=== PATIENT | female | born 1995 | race Caucasian/White ===

== ENCOUNTER 2016-08-16 23:10 | Emergency (ER) | payer SELFPAY ==
[2016-08-16] MEDS ORDERED: Sodium Chloride 0.9% 1000 ML 1,000 ML IV SCH (23:15)
[2016-08-16] MEDS ORDERED: Nitrostat 0.4 MG (ED) SL ONE ×2 (23:15→23:33)
[2016-08-16] MEDS ORDERED: BABY ASPIRIN 81 MG CHEW PO ONE (23:15)
[2016-08-16] MEDS ORDERED: BABY ASPIRIN 81 MG CHEW ONE (23:33)
[2016-08-16] MEDS ORDERED: Sodium Chloride 0.9% 1000 ML 1,000 ML ONE (23:33)
[2016-08-16 23:35] LABS: BASOPHIL % 0.3 % (0.0-0.4); Eosinophil % 3.3 % (0.00-5.0); Granulocytes % 43.9 % (36.0-66.0); Lymphocytes % 43.7 % (24.0-44.0); Mean Cell Volume 90.8 fl (78-100); Mean Corpuscular Hemoglobin 30.3 pg (26-32); Mean Platelet Volume 12.1 fl (6-9.5); Monocytes % 8.8 % (0.0-12.0); Platelet Count 258 K/mm3 (150-450); Red Blood Count 4.35 M/mm3 (4.1-5.4); Red Cell Distribution Width 14.4 % (11.5-14.0); White Blood Count 7.6 K/mm3 (4.0-10.5)
[2016-08-16 23:57] LABS: ANION GAP 13.6 MEQ/L (5-15); BLOOD UREA NITROGEN 10 mg/dL (9-20); CHLORIDE 104 mEq/L (98-107); Carbon Dioxide 25.2 mEq/L (21-32); Glucose 109 MG/DL (70-110); SODIUM 139 mEq/L (136-145)
--- NOTE | 2016-08-17 00:09 | ERPHSYRPT ---
- History of Present Illness Time Seen by Provider: 08/16/16 23:35 Historian: patient Exam Limitations: clinical condition Patient Subjective Stated Complaint: CHEST PAIN THAT RADIATES INTO THE RIGHT ARM. C/O DIZZINESS. Triage Nursing Assessment: PT ALERT X 3. WALKED INTO THE ER. RESPIRATIONS EVEN AND UNLABORED. Physician History: PATIENT COMPLAINS OF LEFT ANTERIOR CHEST PAINS, ONSET 5PM OCCASIONAL RADIATION TO RIGHT ARM. HAS PAIN UPON INSPIRATION, DENIES COUGH, PALPITIATION, DYSPNEA, FEVER OR DIAPHORESIS. Timing/Duration: today Activities at Onset: none Quality: stabbing Location: substernal Chest Pain Radiation: no radiation Severity of Pain-Max: moderate Severity of Pain-Current: mild Modifying Factors: Improves With: nothing Associated Symptoms: hurts to breathe Prior Chest Pain/Cardiac Workup: no prior chest pain Nitro Today/Relief: 0.4 mg x 1, provided by ED Aspirin Treatment Today: 325 mg x 1, provided by ED Allergies/Adverse Reactions: cefaclor [From Ceclor] Allergy (Mild, Verified 11/17/15 22:20) erythromycin base [Erythromycin Base] Allergy (Mild, Verified 11/17/15 22:20) Home Medications: Cetirizine HCl [Zyrtec] 10 mg PO DAILY 11/17/15 [History] Norgestimate-Ethinyl Estradiol [Ortho Tri-Cyclen (28)] 1 tab DAILY 11/17/15 [ History] Hx Tetanus, Diphtheria Vaccination/Date Given: No Hx Influenza Vaccination/Date Given: No Hx Pneumococcal Vaccination/Date Given: No Immunizations Up to Date: Yes - Review of Systems Constitutional: No Fever, No Chills Eyes: No Symptoms Ears, Nose, & Throat: No Symptoms Respiratory: No Symptoms, No Cough, No Dyspnea Cardiac: Chest Pain, No Edema, No Syncope Abdominal/Gastrointestinal: No Symptoms, No Abdominal Pain, No Nausea, No Vomiting, No Diarrhea Genitourinary Symptoms: No Symptoms, No Dysuria Musculoskeletal: No Symptoms, No Back Pain, No Neck Pain Skin: No Symptoms, No Rash Neurological: No Dizziness, No Focal Weakness, No Sensory Changes Psychological: No Symptoms Endocrine: No Symptoms All Other Systems: Reviewed and Negative - Past Medical History Pertinent Past Medical History: Yes Neurological History: Seizures, Other ENT History: Other Cardiac History: No Pertinent History Respiratory History: Asthma Endocrine Medical History: No Pertinent History Musculoskeletal History: No Pertinent History GI Medical History: No Pertinent History History: No Pertinent History Psycho-Social History: Anxiety, Bipolar, Depression Female Reproductive Disorders: No Pertinent History Other Medical History: ODD - Past Surgical History Past Surgical History: Yes Neuro Surgical History: No Pertinent History Cardiac: No Pertinent History Respiratory: No Pertinent History Gastrointestinal: Cholecystectomy Genitourinary: No Pertinent History Musculoskeletal: No Pertinent History Female Surgical History: No Pertinent History Other Surgical History: tonsils et adenoids. NOSE SURGERY - Social History Smoking Status: Current every day smoker How long have you smoked: 9 Exposure to second hand smoke: Yes Drug Use: none Patient Lives Alone: No Significant Family History: no pertinent family hx - Female History Hx Last Menstrual Period: 07/28/2016 Hx Now: No - Nursing Vital Signs Nursing Vital Signs: Initial Vital Signs Pulse Rate [Right Radial] 80 Pulse Rate 70 Respiratory Rate 18 Blood Pressure [Right Arm] 122/76 Pain Intensity 3 - Physical Exam General Appearance: no apparent distress, alert Eye Exam: PERRL/EOMI, eyes nml inspection Ears, Nose, Throat Exam: normal ENT inspection, moist mucous membranes Neck Exam: normal inspection, non-tender, supple, full range of motion Respiratory Exam: normal breath sounds, chest tenderness (TENDERNESS LEFT ANTERIOR CHEST WALL 3RD TO 5TH RIBS, NO CREPITUS OR ECCHYMOSIS), lungs clear, No respiratory distress Cardiovascular Exam: regular rate/rhythm, normal heart sounds Gastrointestinal/Abdomen Exam: soft, No tenderness, No mass Back Exam: normal inspection, No CVA tenderness, No vertebral tenderness Extremity Exam: normal inspection, normal range of motion Neurologic Exam: alert, oriented x 3, cooperative, normal mood/affect, sensation nml, No motor deficits Skin Exam: normal color, warm, dry SpO2 Interpretation: normal SpO2: 97 Oxygen Delivery: Nasal Cannula - Course EKG Interpreted by Me: RATE, Sinus Rhythm, NORMAL AXIS - CT Exams Chest CT Interpretation: Tele-radiologist Report, No PE Ordered Tests: Active Orders 24 hr Category Date Time Status Adjunct Psychology Faculty Member STAT Care 08/16/16 23:15 Active EKG-ER Only STAT Care 08/16/16 23:15 Active IV Insertion STAT Care 08/16/16 23:15 Active Oxygen-ED Only NASAL CANNULA 2 lpm Care 08/16/16 23:15 Active CHEST WITH CONTRAST [CT] Stat Exams 08/17/16 00:43 Taken BMP Stat Lab 08/16/16 23:30 Completed CBC W DIFF Stat Lab 08/16/16 23:30 Completed D-DIMER QUANTITATION Stat Lab 08/16/16 23:30 Completed HCG,QUALITATIVE URINE Stat Lab 08/17/16 01:30 Completed TROPONIN Q3H Lab 08/16/16 23:15 Completed TROPONIN Q3H Lab 08/17/16 02:55 Received TROPONIN Q3H Lab 08/17/16 05:15 Ordered TROPONIN Q3H Lab 08/17/16 08:15 Ordered TROPONIN Q3H Lab 08/17/16 11:15 Ordered Medication Summary Generic Name Dose Route Start Last Admin Trade Name Freq PRN Reason Stop Dose Admin Sodium Chloride 1,000 mls @ 100 mls/hr 08/16/16 23:15 08/16/16 23:36 Sodium Chloride 0.9% 1000 Ml IV 09/15/16 23:14 100 mls/hr .Q10H FANY Administration Discontinued Medications Generic Name Dose Route Start Last Admin Trade Name Freq PRN Reason Stop Dose Admin Aspirin 324 mg 08/16/16 23:15 08/16/16 23:36 Baby Aspirin 81 Mg Chew PO 08/16/16 23:16 324 mg STAT ONE Administration Aspirin Confirm 08/16/16 23:33 Baby Aspirin 81 Mg Chew Administered 08/16/16 23:34 Dose 324 mg .ROUTE .STK-MED ONE Nitroglycerin 0.4 mg 08/16/16 23:15 08/16/16 23:36 Nitrostat 0.4 Mg (Ed) SL 08/16/16 23:16 0.4 mg STAT ONE Administration Nitroglycerin Confirm 08/16/16 23:33 Nitrostat 0.4 Mg (Ed) Administered 08/16/16 23:34 Dose 0.4 mg SL .STK-MED ONE Lab/Rad Data: Laboratory Result Diagrams 08/16/16 23:30 08/16/16 23:30 Laboratory Results 08/17/16 08/16/16 08/16/16 Range/Units 01:30 23:30 23:30 WBC (4.0-10.5) K/mm3 RBC (4.1-5.4) M/mm3 Hgb (12.0-16.0) gm/dl Hct (35-47) % MCV (78-100) fl MCH (26-32) pg MCHC (32-36) g/dl RDW (11.5-14.0) % Plt Count (150-450) K/mm3 MPV (6-9.5) fl Gran % (36.0-66.0) % Lymphocytes % (24.0-44.0) % Monocytes % (0.0-12.0) % Eosinophils % (0.00-5.0) % Basophils % (0.0-0.4) % Basophils # (0-0.4) D-Dimer 549.94 H* (0.00-500.00) ng/mL Sodium 139 (136-145) mEq/L Potassium 4.0 (3.5-5.1) mEq/L Chloride 104 (98-107) mEq/L Carbon Dioxide 25.2 (21-32) mEq/L Anion Gap 13.6 (5-15) MEQ/L BUN 10 (9-20) mg/dL Creatinine 0.98 (0.55-1.30) mg/dl Estimated GFR > 60 ML/MIN Glucose 109 (70-110) MG/DL Calcium 8.8 (8.5-10.1) mg/dL Troponin I (0.000-0.056) ng/ml Urine HCG, Qual NEGATIVE (Negative) Urine Opiates Level (NEGATIVE) Ur Methadone (NEGATIVE) Urine Barbiturates (NEGATIVE) Ur Phencyclidine (PCP) (NEGATIVE) Urine Amphetamine (NEGATIVE) U Benzodiazepine Level (NEGATIVE) Urine Cocaine (NEGATIVE) Urine Marijuana (THC) (NEGATIVE) 08/16/16 08/16/16 08/16/16 Range/Units 23:30 23:15 01:30 WBC 7.6 (4.0-10.5) K/mm3 RBC 4.35 (4.1-5.4) M/mm3 Hgb 13.2 (12.0-16.0) gm/dl Hct 39.5 (35-47) % MCV 90.8 (78-100) fl MCH 30.3 (26-32) pg MCHC 33.4 (32-36) g/dl RDW 14.4 H (11.5-14.0) % Plt Count 258 (150-450) K/mm3 MPV 12.1 H (6-9.5) fl Gran % 43.9 (36.0-66.0) % Lymphocytes % 43.7 (24.0-44.0) % Monocytes % 8.8 (0.0-12.0) % Eosinophils % 3.3 (0.00-5.0) % Basophils % 0.3 (0.0-0.4) % Basophils # 0.02 (0-0.4) D-Dimer (0.00-500.00) ng/mL Sodium (136-145) mEq/L Potassium (3.5-5.1) mEq/L Chloride (98-107) mEq/L Carbon Dioxide (21-32) mEq/L Anion Gap (5-15) MEQ/L BUN (9-20) mg/dL Creatinine (0.55-1.30) mg/dl Estimated GFR ML/MIN Glucose (70-110) MG/DL Calcium (8.5-10.1) mg/dL Troponin I < 0.017 (0.000-0.056) ng/ml Urine HCG, Qual (Negative) Urine Opiates Level NEG. (NEGATIVE) Ur Methadone NEG. (NEGATIVE) Urine Barbiturates NEG. (NEGATIVE) Ur Phencyclidine (PCP) NEG. (NEGATIVE) Urine Amphetamine NEG. (NEGATIVE) U Benzodiazepine Level NEG. (NEGATIVE) Urine Cocaine NEG. (NEGATIVE) Urine Marijuana (THC) NEG. (NEGATIVE) - Progress Progress: improved Progress Note: 08/17/16 03:29PATIENT GIVEN TORADOL 30MG IV Counseled pt/family regarding: lab results, diagnosis, need for follow-up, rad results - Departure Time of Disposition: 03:45 Departure Disposition: Home Clinical Impression: CHEST WALL PAIN Condition: Stable Critical Care Time: No Referrals: JOE LAYTON NP [Primary Care Provider] - Instructions: Atypical Chest Pain Additional Instructions: BEGIN TORADOL 10MG EVERY 6 HOURS FOR PAIN NEEDED. FOLLOWUP YOUR FAMILY PHYSICIAN IN 1 WEEK.
[2016-08-17 02:56] VITALS: PULSE 70
[2016-08-17] MEDS ORDERED: TORAdol 30 mg Injection IV ONE (03:28)
[2016-08-17] MEDS ORDERED: TORAdol 30 mg Injection ONE (03:39)
[2016-08-17 03:46] VITALS: BP 131/79; O2SAT 98
--- NOTE | 2016-08-17 19:41 | XRAY ---
Exam: CT of the chest with IV contrast per PE protocol from 08/17/2016. CTDI: 28.14 Comparison: AP upright portable chest film from 08/16/2013. Indication: Elevated d-dimer, chest pain 9 hours with dizziness, rule out PE. Technique: Post-IV contrast axial images were obtained through the chest during automated injection of 80 cc of Isovue-370 intravenous contrast material per PE protocol. Reconstructed coronal MIP and sagittal images were created and reviewed. Findings: The pulmonary arteries enhance well and reveal no filling defects to suggest pulmonary emboli. The thoracic aorta is of normal diameter and reveals no evidence of aortic dissection. The heart size is normal without pericardial effusion. No abnormal mediastinal or perihilar lymphadenopathy is seen. There is a small amount of soft tissue density within the prevascular space of the upper chest which could represent some residual thymus tissue in this 21 year-old patient. The visualized thyroid gland appears unremarkable. Mild posterior dependent atelectatic changes are seen adjacent to both posterior pleural surfaces. The remainder of the lung solorio are well-expanded and appear clear. No pneumothorax or pleural fluid is seen. Air is seen within the distal thoracic esophageal lumen with a small air-fluid level. For example, see axial image #89. Consider mild gastroesophageal reflux disease. The upper abdomen reveals hepatic steatosis. Surgical clips consistent with prior cholecystectomy are noted. The adrenal glands appear unremarkable. The skeletal structures reveal no fracture or aggressive bone lesion. Impression: 1. No CT evidence of pulmonary embolism or thoracic aortic dissection is seen. 2. There is a small air-fluid level within the distal thoracic esophageal lumen. Consider gastroesophageal reflux disease. 3. The lungs are remarkable for posterior dependent atelectatic changes adjacent to the posterior pleural surfaces. No other active lung disease is seen. 4. Hepatic steatosis. 5. Status post cholecystectomy.
== END 2016-08-17 03:56 | disposition home or self-care (01) ==
LOC: ED 23:10
DX: R07.89 Other chest pain (principal); R42 Dizziness and giddiness
CPT/HCPCS: 36000; 36415; 71260; 80048; 80307; 84484; 84703; 85025; 85379; 93005; 93041; 96360; 96361; 99284; J1885; A9270-GY

== ENCOUNTER 2018-08-04 22:11 | Emergency (ER) | payer OTHER ==
[2018-08-05] MEDS ORDERED: DUONEB 0.5-3 MG/3 ml Neb IH ONE ×2 (00:30→00:51)
[2018-08-05] MEDS ORDERED: Augmentin 875-125 Tablet PO ONE (00:30)
[2018-08-05] MEDS ORDERED: Augmentin 875-125 Tablet ONE (00:49)
--- NOTE | 2018-08-05 00:52 | ERPHSYRPT ---
- History of Present Illness Time Seen by Provider: 08/05/18 00:13 Source: patient Exam Limitations: clinical condition Patient Subjective Stated Complaint: pt stated sore throat started a couple of days ago. no fever, productive cough with yellow sputum, left ear pain with discharge and congestion throat is sore Triage Nursing Assessment: A/O speech clear, voice slightly hoarse. c/o sore throat and ear pain. afebrile at home. resp easy, nonproductive cough noted. rhonchi noted left posterior Physician History: PATIENT WITH A HISTORY OF ASTHMA COMPLAINS OF PRODUCTIVE COUGH, SORETHROAT AND LEFT EARACHE X 4 DAYS. DENIES DIFFICULTY BREATHING, DYSPNEA OR FEVER. Timing/Duration: day(s) Cough Quality/Degree: productive cough Possible Cause: occasional episodes Modifying Factors: Improves With: activity Associated Symptoms: sore throat International travel in last 2 weeks: No Allergies/Adverse Reactions: cefaclor [From Ceclor] Allergy (Mild, Verified 11/17/15 22:20) erythromycin base [Erythromycin Base] Allergy (Mild, Verified 11/17/15 22:20) Home Medications: Quetiapine Fumarate [Seroquel] 100 mg PO HS 08/05/18 [History] Hx Tetanus, Diphtheria Vaccination/Date Given: No Hx Influenza Vaccination/Date Given: No Hx Pneumococcal Vaccination/Date Given: No Immunizations Up to Date: Yes - Review of Systems Constitutional: No Fever, No Chills Eyes: No Symptoms Ears, Nose, & Throat: Throat Pain Respiratory: Cough, No Dyspnea Cardiac: No Symptoms, No Chest Pain, No Edema, No Syncope Abdominal/Gastrointestinal: No Symptoms, No Abdominal Pain, No Nausea, No Vomiting, No Diarrhea Genitourinary Symptoms: No Dysuria Musculoskeletal: No Back Pain, No Neck Pain Skin: No Rash Neurological: No Dizziness, No Focal Weakness, No Sensory Changes Psychological: No Symptoms Endocrine: No Symptoms All Other Systems: Reviewed and Negative - Past Medical History Pertinent Past Medical History: Yes Neurological History: No Pertinent History ENT History: Other Cardiac History: No Pertinent History Respiratory History: Asthma Endocrine Medical History: No Pertinent History Musculoskeletal History: No Pertinent History GI Medical History: No Pertinent History History: No Pertinent History Psycho-Social History: Anxiety, Bipolar, Depression Female Reproductive Disorders: No Pertinent History Other Medical History: ODD - Past Surgical History Past Surgical History: Yes Neuro Surgical History: No Pertinent History Cardiac: No Pertinent History Respiratory: No Pertinent History Gastrointestinal: Cholecystectomy Genitourinary: No Pertinent History Musculoskeletal: No Pertinent History Female Surgical History: No Pertinent History Other Surgical History: tonsils et adenoids. NOSE SURGERY - Social History Smoking Status: Current every day smoker How long have you smoked: 9 Exposure to second hand smoke: Yes Drug Use: none Patient Lives Alone: No Significant Family History: no pertinent family hx - Female History Hx Last Menstrual Period: 2018 Hx Now: No - Nursing Vital Signs Nursing Vital Signs: Initial Vital Signs Temperature 98.4 F 08/04/18 22:11 Pulse Rate 74 08/04/18 22:11 Respiratory Rate 20 08/04/18 22:11 Blood Pressure 127/91 08/04/18 22:11 O2 Sat by Pulse Oximetry 98 08/04/18 22:11 Pain Scale Pain Intensity 8 - Physical Exam General Appearance: no apparent distress Eye Exam: PERRL/EOMI Ears, Nose, Throat Exam: normal ENT inspection Neck Exam: normal inspection Respiratory Exam: normal breath sounds, wheezing (TERMINAL EXPIRATORY WHEEZES) Cardiovascular Exam: regular rate/rhythm, normal heart sounds Back Exam: normal inspection Neurologic Exam: alert, oriented x 3 SpO2 Interpretation: normal SpO2: 98 Ordered Tests: Medication Summary Discontinued Medications Generic Name Dose Route Start Last Admin Trade Name Freq PRN Reason Stop Dose Admin Albuterol/Ipratropium 3 ml 08/05/18 00:30 Duoneb 0.5-3 Mg/3 Ml Neb IH 08/05/18 00:31 STAT ONE Amoxicillin/Clavulanate Potassium 875 mg 08/05/18 00:30 Augmentin 875-125 Tablet PO 08/05/18 00:31 STAT ONE - Progress Progress: improved Air Movement: good Progress Note: 08/05/18 00:37 PREDNISONE 40MG ORALLY, AUGMENTIN 875MG ORALLY, DUONEB AEROSOL [place] Counseled pt/family regarding: lab results, diagnosis, need for follow-up - Departure Departure Disposition: Home Clinical Impression: ACUTE ASTHMATIC BRONCHITI Condition: Stable Critical Care Time: No Referrals: SERJIO GRAY [Primary Care Provider] - Additional Instructions: TAKE OVER THE COUNTER COUGH SYRUP FOR COUGHING EVERY 4 HOURS NEEDED. ANTIBIOTIC AUGMENTIN 875MG TWICE DAILY FOR 10 DAYS. PREDNISONE 20MG, 2 TABLETS DAILY FOR 4 DAYS. FOLLOWUP WITH YOUR PRIMARY CARE PROVIDER FOR FOLLOWUP IN 4-5 DAYS. Prescriptions: Amox Tr/Potass Clav. 875 mg [Augmentin 875-125 Tablet] 875 mg PO BID #20 tablet Prednisone 20 mg [Deltasone 20 mg] 2 tab PO DAILY #8 tablet
[2018-08-05 02:14] VITALS: BP 111/80; PULSE 82; O2SAT 96
== END 2018-08-05 02:13 | disposition home or self-care (01) ==
LOC: ED 22:11
DX: J45.909 Unspecified asthma, uncomplicated (principal); F17.200 Nicotine dependence, unspecified, uncomplicated
CPT/HCPCS: 87651; 94640; 99283; A9270-GY

== ENCOUNTER 2019-01-17 21:28 | Emergency (ER) | payer SELFPAY ==
--- NOTE | 2019-01-17 21:39 | ERPHSYRPT ---
- History of Present Illness Time Seen by Provider: 01/17/19 21:39 Historian: patient, family Exam Limitations: no limitations Physician History: 23 y/o white female presents to ED with 2 day h/o intermittent vomiting and diarrhea. no known exposures to individuals with same sx. denies cough, denies soa, and denies cp. Timing/Duration: day(s) (2) Activities at Onset: none Abdominal Pain Onset Location: other (no sig abd pain) Pain Radiation: no radiation Severity of Pain-Max: none Severity of Pain-Current: none Associated Symptoms: denies symptoms, diarrhea, nausea, vomiting Previous symptoms: no prior history Allergies/Adverse Reactions: cefaclor [From Ceclor] Allergy (Mild, Verified 11/17/15 22:20) erythromycin base [Erythromycin Base] Allergy (Mild, Verified 11/17/15 22:20) Hx Tetanus, Diphtheria Vaccination/Date Given: No Hx Influenza Vaccination/Date Given: No Hx Pneumococcal Vaccination/Date Given: No - Review of Systems Constitutional: No Symptoms Eyes: No Symptoms Ears, Nose, & Throat: No Symptoms Respiratory: No Symptoms Cardiac: No Symptoms Abdominal/Gastrointestinal: Nausea, Vomiting, Diarrhea, No Abdominal Pain Genitourinary Symptoms: No Symptoms Musculoskeletal: No Symptoms Skin: No Symptoms Neurological: No Symptoms Psychological: No Symptoms Endocrine: No Symptoms Hematologic/Lymphatic: No Symptoms Immunological/Allergic: No Symptoms All Other Systems: Reviewed and Negative - Past Medical History Pertinent Past Medical History: Yes Neurological History: No Pertinent History ENT History: Other Cardiac History: No Pertinent History Respiratory History: Asthma Endocrine Medical History: No Pertinent History Musculoskeletal History: No Pertinent History GI Medical History: No Pertinent History History: No Pertinent History Psycho-Social History: Anxiety, Bipolar, Depression Female Reproductive Disorders: No Pertinent History Other Medical History: ODD - Past Surgical History Past Surgical History: Yes Neuro Surgical History: No Pertinent History Cardiac: No Pertinent History Respiratory: No Pertinent History Gastrointestinal: Cholecystectomy Genitourinary: No Pertinent History Musculoskeletal: No Pertinent History Female Surgical History: No Pertinent History Other Surgical History: tonsils et adenoids. NOSE SURGERY - Social History Smoking Status: Current every day smoker How long have you smoked: 9 Exposure to second hand smoke: Yes Drug Use: none Patient Lives Alone: No Significant Family History: no pertinent family hx - Nursing Vital Signs Nursing Vital Signs: Initial Vital Signs Temperature 98.8 F 01/17/19 21:38 Pulse Rate 96 H 01/17/19 21:38 Respiratory Rate 17 01/17/19 21:38 Blood Pressure 141/92 01/17/19 21:38 O2 Sat by Pulse Oximetry 97 01/17/19 21:38 Pain Scale Pain Intensity 4 - Physical Exam General Appearance: no apparent distress, alert, anxiety Eye Exam: PERRL/EOMI, eyes nml inspection Ears, Nose, Throat Exam: normal ENT inspection, moist mucous membranes Neck Exam: normal inspection, non-tender, supple, full range of motion Respiratory Exam: normal breath sounds, lungs clear, airway intact, No chest tenderness, No respiratory distress Cardiovascular Exam: regular rate/rhythm, normal heart sounds, normal peripheral pulses Gastrointestinal/Abdomen Exam: soft, normal bowel sounds, No tenderness, No guarding Pelvic Exam: not done Rectal Exam: not done Back Exam: normal inspection, normal range of motion, No CVA tenderness, No vertebral tenderness Extremity Exam: normal inspection, normal range of motion, pelvis stable Neurologic Exam: alert, oriented x 3, cooperative, gauger chief delivery II-XII nml as tested Skin Exam: normal color, warm, dry Lymphatic Exam: No adenopathy SpO2 Interpretation: normal O2 Delivery: Room Air - Course Nursing assessment & vital signs reviewed: Yes Ordered Tests: Active Orders 24 hr Category Date Time Status IV Insertion STAT Care 01/17/19 21:59 Active AMYLASE Stat Lab 01/17/19 22:18 Completed CBC W DIFF Stat Lab 01/17/19 22:18 Completed CMP Stat Lab 01/17/19 22:18 Completed HCG,QUALITATIVE URINE Stat Lab 01/17/19 22:10 Completed LIPASE Stat Lab 01/17/19 22:18 Completed UA W/RFX UR CULTURE Stat Lab 01/17/19 22:10 Completed Medication Summary Discontinued Medications Generic Name Dose Route Start Last Admin Trade Name Freq PRN Reason Stop Dose Admin Famotidine 20 mg 01/17/19 21:59 01/17/19 22:18 Pepcid 20 Mg Vial IV 01/17/19 22:00 20 mg STAT ONE Administration Famotidine Confirm 01/17/19 22:13 Pepcid 20 Mg Vial Administered 01/17/19 22:14 Dose 20 mg IV .STK-MED ONE Sodium Chloride 1,000 mls @ 999 mls/hr 01/17/19 21:59 01/17/19 22:16 Sodium Chloride 0.9% 1000 Ml IV 01/17/19 22:59 999 mls/hr .Q1H1M STA Administration Sodium Chloride Confirm 01/17/19 22:13 Sodium Chloride 0.9% 1000 Ml Administered 01/17/19 22:14 Dose 1,000 mls @ ud .ROUTE .STK-MED ONE Ondansetron HCl 4 mg 01/17/19 21:59 01/17/19 22:17 Zofran 4 Mg/2 Ml Vial IV 01/17/19 22:00 4 mg STAT ONE Administration Ondansetron HCl Confirm 01/17/19 22:13 Zofran 4 Mg/2 Ml Vial Administered 01/17/19 22:14 Dose 4 mg .ROUTE .STK-MED ONE Lab/Rad Data: Laboratory Result Diagrams 01/17/19 22:18 01/17/19 22:18 Laboratory Results 01/17/19 01/17/19 01/17/19 Range/Units 23:04 22:18 22:18 WBC 10.3 (4.0-10.5) K/mm3 RBC 4.60 (4.1-5.4) M/mm3 Hgb 14.3 (12.0-16.0) gm/dl Hct 42.2 (35-47) % MCV 91.7 (78-100) fl MCH 31.1 (26-32) pg MCHC 33.9 (32-36) g/dl RDW 14.5 H (11.5-14.0) % Plt Count 259 (150-450) K/mm3 MPV 12.1 H (6-9.5) fl Gran % 53.5 (36.0-66.0) % Eos # (Auto) 0.30 (0-0.5) Absolute Lymphs (auto) 3.86 (1.0-4.6) Absolute Monos (auto) 0.60 (0.0-1.3) Lymphocytes % 37.6 (24.0-44.0) % Monocytes % 5.8 (0.0-12.0) % Eosinophils % 2.9 (0.00-5.0) % Basophils % 0.2 (0.0-0.4) % Absolute Granulocytes 5.48 (1.4-6.9) Basophils # 0.02 (0-0.4) Sodium 141 (137-145) mmol/L Potassium 4.1 (3.5-5.1) mmol/L Chloride 105 (98-107) mmol/L Carbon Dioxide 25 (22-30) mmol/L Anion Gap 14.8 (5-15) MEQ/L BUN 11 (7-17) mg/dL Creatinine 0.69 (0.52-1.04) mg/dL Estimated GFR > 60.0 ML/MIN Glucose 110 H (74-106) mg/dL Calcium 9.7 (8.4-10.2) mg/dL Total Bilirubin 0.40 (0.2-1.3) mg/dL AST 30 (14-36) U/L ALT 45 H (0-35) U/L Alkaline Phosphatase 58 (38-126) U/L Serum Total Protein 7.9 (6.3-8.2) g/dL Albumin 4.3 (3.5-5.0) g/dL Amylase 76 (30-110) U/L Lipase 98 (23-300) U/L Urine Color (YELLOW) Urine Appearance (CLEAR) Urine pH (5-6) Ur Specific [place] (1.005-1.025) Urine Protein (Negative) Urine Ketones (NEGATIVE) Urine Blood (0-5) Brendon/ul Urine Nitrite (NEGATIVE) Urine Bilirubin (NEGATIVE) Urine Urobilinogen (0-1) mg/dL Ur Leukocyte Esterase (NEGATIVE) Urine WBC (Auto) (0-5) /HPF Urine RBC (Auto) (0-2) /HPF U Epithel Cells (Auto) (FEW) /HPF Urine Bacteria (Auto) (NEGATIVE) /HPF Urine Mucus (Auto) (NEGATIVE) /HPF Urine Culture Reflexed (NO) Urine Glucose (NEGATIVE) mg/dL Urine HCG, Qual (Negative) Influenza Type A Ag NEGATIVE (NEGATIVE) Influenza Type B Ag NEGATIVE (NEGATIVE) RSV (PCR) NEGATIVE (Negative) Group A Strep Antibody NEGATIVE (NEGATIVE) 01/17/19 01/17/19 Range/Units 22:10 22:10 WBC (4.0-10.5) K/mm3 RBC (4.1-5.4) M/mm3 Hgb (12.0-16.0) gm/dl Hct (35-47) % MCV (78-100) fl MCH (26-32) pg MCHC (32-36) g/dl RDW (11.5-14.0) % Plt Count (150-450) K/mm3 MPV (6-9.5) fl Gran % (36.0-66.0) % Eos # (Auto) (0-0.5) Absolute Lymphs (auto) (1.0-4.6) Absolute Monos (auto) (0.0-1.3) Lymphocytes % (24.0-44.0) % Monocytes % (0.0-12.0) % Eosinophils % (0.00-5.0) % Basophils % (0.0-0.4) % Absolute Granulocytes (1.4-6.9) Basophils # (0-0.4) Sodium (137-145) mmol/L Potassium (3.5-5.1) mmol/L Chloride (98-107) mmol/L Carbon Dioxide (22-30) mmol/L Anion Gap (5-15) MEQ/L BUN (7-17) mg/dL Creatinine (0.52-1.04) mg/dL Estimated GFR ML/MIN Glucose (74-106) mg/dL Calcium (8.4-10.2) mg/dL Total Bilirubin (0.2-1.3) mg/dL AST (14-36) U/L ALT (0-35) U/L Alkaline Phosphatase (38-126) U/L Serum Total Protein (6.3-8.2) g/dL Albumin (3.5-5.0) g/dL Amylase (30-110) U/L Lipase (23-300) U/L Urine Color YELLOW (YELLOW) Urine Appearance SLIGHTLY CLOUDY (CLEAR) Urine pH 7.0 (5-6) Ur Specific [place] 1.019 (1.005-1.025) Urine Protein NEGATIVE (Negative) Urine Ketones NEGATIVE (NEGATIVE) Urine Blood NEGATIVE (0-5) Brendon/ul Urine Nitrite NEGATIVE (NEGATIVE) Urine Bilirubin NEGATIVE (NEGATIVE) Urine Urobilinogen NEGATIVE (0-1) mg/dL Ur Leukocyte Esterase NEGATIVE (NEGATIVE) Urine WBC (Auto) 0-2 (0-5) /HPF Urine RBC (Auto) NONE (0-2) /HPF U Epithel Cells (Auto) RARE (FEW) /HPF Urine Bacteria (Auto) NONE (NEGATIVE) /HPF Urine Mucus (Auto) SLIGHT (NEGATIVE) /HPF Urine Culture Reflexed NO (NO) Urine Glucose NEGATIVE (NEGATIVE) mg/dL Urine HCG, Qual NEGATIVE (Negative) Influenza Type A Ag (NEGATIVE) Influenza Type B Ag (NEGATIVE) RSV (PCR) (Negative) Group A Strep Antibody (NEGATIVE) - Progress Progress: improved Counseled pt/family regarding: lab results, diagnosis, need for follow-up - Departure Departure Disposition: Home Clinical Impression: Vomiting and diarrhea Condition: Stable Critical Care Time: No Referrals: SERJIO GRAY [Primary Care Provider] - Additional Instructions: drink plenty of fluids. follow up with primary doctor for further management Prescriptions: Ondansetron HCl [Zofran] 4 mg PO TID PRN #10 tablet PRN Reason: Nausea/Vomiting
[2019-01-17] MEDS ORDERED: Pepcid 20 MG VIAL IV ONE ×2 (21:59→22:13)
[2019-01-17] MEDS ORDERED: Sodium Chloride 0.9% 1000 ML 1,000 ML IV STA (21:59)
[2019-01-17] MEDS ORDERED: Zofran 4 MG/2 ML VIAL IV ONE (21:59)
[2019-01-17] MEDS ORDERED: Sodium Chloride 0.9% 1000 ML 1,000 ML ONE (22:13)
[2019-01-17] MEDS ORDERED: Zofran 4 MG/2 ML VIAL ONE (22:13)
[2019-01-17 22:21] LABS: Absolute Neutrophil Ct (ANC) 5.48 (1.4-6.9); BASOPHIL % 0.2 % (0.0-0.4); Basophil (Absolute #) 0.02 (0-0.4); Eosinophil % 2.9 % (0.00-5.0); Hematocrit 42.2 % (35-47); Hemoglobin 14.3 gm/dl (12.0-16.0); Lymphocyte (Absolute #) 3.86 (1.0-4.6); Lymphocytes % 37.6 % (24.0-44.0); Mean Cell Volume 91.7 fl (78-100); Mean Corpuscular Hemoglobin 31.1 pg (26-32); Mean Corpuscular Hgb Concent. 33.9 g/dl (32-36); Mean Platelet Volume 12.1 fl (6-9.5); Monocytes % 5.8 % (0.0-12.0); Neutrophil % 53.5 % (36.0-66.0); Platelet Count 259 K/mm3 (150-450); Red Cell Distribution Width 14.5 % (11.5-14.0); White Blood Count 10.3 K/mm3 (4.0-10.5)
[2019-01-17 22:25] LABS: Appearance SLIGHTLY CLOUDY (CLEAR); Bilirubin NEGATIVE (NEGATIVE); Blood NEGATIVE Ery/ul (0-5); Epithelial Cells RARE /HPF (FEW); Glucose NEGATIVE (NEGATIVE); Ketones NEGATIVE (NEGATIVE); Leukocyte Esterase NEGATIVE (NEGATIVE); Mucus SLIGHT /HPF (NEGATIVE); Nitrite NEGATIVE (NEGATIVE); Protein,Urine Dip NEGATIVE (Negative); Specific Gravity 1.019 (1.005-1.025); Urobilinogen NEGATIVE mg/dL (0-1); WBC 0-2 /HPF (0-5)
[2019-01-17 22:33] LABS: ALBUMIN 4.3 g/dL (3.5-5.0); ALKALINE PHOSPHATASE 58 U/L (38-126); AMYLASE 76 U/L (30-110); ANION GAP 14.8 MEQ/L (5-15); BLOOD UREA NITROGEN 11 mg/dL (7-17); CHLORIDE 105 mmol/L (98-107); Calcium 9.7 mg/dL (8.4-10.2); Carbon Dioxide 25 mmol/L (22-30); Creatinine 1 0.69 mg/dL (0.52-1.04); Glucose 110 mg/dL (74-106); LIPASE 98 U/L (23-300); Potassium 4.1 mmol/L (3.5-5.1); SGOT/AST 30 U/L (14-36); SGPT/ALT 45 U/L (0-35); SODIUM 141 mmol/L (137-145); Total Protein 7.9 g/dL (6.3-8.2)
[2019-01-17 23:41] LABS: Group A Strep NEGATIVE (NEGATIVE); INFLUENZA A NEGATIVE (NEGATIVE); INFLUENZA B NEGATIVE (NEGATIVE); RESPIRATORY SYNCTIAL VIRUS NEGATIVE (Negative)
[2019-01-18 00:20] VITALS: BP 144/83; PULSE 87; O2SAT 98
== END 2019-01-18 00:08 | disposition home or self-care (01) ==
LOC: ED 21:28
DX: R11.2 Nausea with vomiting, unspecified (principal); R19.7 Diarrhea, unspecified
CPT/HCPCS: 36000; 36415; 80053; 81001; 82150; 83690; 84703; 85025; 87631; 87651; 96374; 96375; 99284; J2405

== ENCOUNTER 2019-02-24 20:47 | Emergency (ER) | payer SELFPAY ==
[2019-02-24] MEDS ORDERED: DUONEB 0.5-3 MG/3 ml Neb IH ONE ×2 (22:14→22:27)
--- NOTE | 2019-02-24 22:14 | ERPHSYRPT ---
- History of Present Illness Time Seen by Provider: 02/24/19 20:55 Source: patient Exam Limitations: no limitations Patient Subjective Stated Complaint: pt arrived stating sh has had a cough for three days, sore throat, chills Triage Nursing Assessment: pt alert and oriented, pt states she has no pain at this time Physician History: Pt with c/c of cough for 3 days but getting worse and feels that she has a ball of hair in her throat. Pt notes that she coughs to the point of vomiting now. Pt has a very sore throat too. Hasn't really taken anything for the s/s. Timing/Duration: day(s) (3) Cough Quality/Degree: dry cough Possible Cause: no prior episodes Modifying Factors: Improves With: coughing Associated Symptoms: fever, chills, cough, sore throat International travel in last 2 weeks: No Allergies/Adverse Reactions: cefaclor [From Ceclor] Allergy (Mild, Verified 02/24/19 21:07) erythromycin base [Erythromycin Base] Allergy (Mild, Verified 02/24/19 21:07) Hx Tetanus, Diphtheria Vaccination/Date Given: No Hx Influenza Vaccination/Date Given: Yes (01/15) Hx Pneumococcal Vaccination/Date Given: No - Review of Systems Constitutional: Fever, Chills, Fatigue, Malaise Eyes: No Symptoms Ears, Nose, & Throat: Throat Pain, Hoarse Respiratory: Cough, Dyspnea on Exertion (ROSS), Wheezing Cardiac: No Symptoms Abdominal/Gastrointestinal: No Symptoms Genitourinary Symptoms: No Symptoms, Other Musculoskeletal: Back Pain Skin: No Symptoms Neurological: No Symptoms Psychological: No Symptoms Endocrine: No Symptoms Hematologic/Lymphatic: No Symptoms Immunological/Allergic: No Symptoms All Other Systems: Reviewed and Negative - Past Medical History Pertinent Past Medical History: Yes Neurological History: No Pertinent History ENT History: Other Cardiac History: No Pertinent History Respiratory History: Asthma Endocrine Medical History: No Pertinent History Musculoskeletal History: No Pertinent History GI Medical History: No Pertinent History History: No Pertinent History Psycho-Social History: Anxiety, Bipolar, Depression Female Reproductive Disorders: No Pertinent History Other Medical History: ODD - Past Surgical History Past Surgical History: Yes Neuro Surgical History: No Pertinent History Cardiac: No Pertinent History Respiratory: No Pertinent History Gastrointestinal: Cholecystectomy Genitourinary: No Pertinent History Musculoskeletal: No Pertinent History Female Surgical History: No Pertinent History Other Surgical History: tonsils et adenoids. NOSE SURGERY - Social History Smoking Status: Current every day smoker How long have you smoked: 9 Exposure to second hand smoke: Yes Drug Use: none Patient Lives Alone: No Significant Family History: no pertinent family hx - Female History Hx Last Menstrual Period: depo shot Hx Now: No - Nursing Vital Signs Nursing Vital Signs: Initial Vital Signs Temperature 98.7 F 02/24/19 20:58 Pulse Rate 107 H 02/24/19 20:58 Respiratory Rate 18 02/24/19 20:58 Blood Pressure 130/94 02/24/19 20:58 O2 Sat by Pulse Oximetry 96 02/24/19 20:58 Pain Scale Pain Intensity 4 - Physical Exam General Appearance: no apparent distress Eye Exam: PERRL/EOMI Ears, Nose, Throat Exam: normal ENT inspection, TMs normal, pharyngeal erythema (mild) Neck Exam: normal inspection Respiratory Exam: normal breath sounds, other (slightly coarse breath sounds), No wheezing, No stridor Cardiovascular Exam: regular rate/rhythm, normal heart sounds Gastrointestinal/Abdomen Exam: soft, normal bowel sounds, No tenderness Pelvic Exam: not done Rectal Exam: not done Back Exam: normal inspection Extremity Exam: normal inspection, normal range of motion Neurologic Exam: alert, oriented x 3, cooperative, director of sales II-XII nml as tested Skin Exam: normal color, warm, dry, No rash Lymphatic Exam: No adenopathy SpO2 Interpretation: normal SpO2: 97 O2 Delivery: Room Air - Course Nursing assessment & vital signs reviewed: Yes Ordered Tests: Active Orders 24 hr Category Date Time Status CHEST 2 VIEWS (PA AND LAT) Stat Exams 02/24/19 22:15 Completed Peak Expiratory Flow Rate ONCE RT 02/24/19 22:48 Active Respiratory Therapy Assessment ONCE RT 02/24/19 22:48 Active Medication Summary Discontinued Medications Generic Name Dose Route Start Last Admin Trade Name Freq PRN Reason Stop Dose Admin Albuterol/Ipratropium 3 ml 02/24/19 22:14 02/24/19 22:29 Duoneb 0.5-3 Mg/3 Ml Neb IH 02/24/19 22:15 3 ml STAT ONE Administration Albuterol/Ipratropium Confirm 02/24/19 22:27 Duoneb 0.5-3 Mg/3 Ml Neb Administered 02/24/19 22:28 Dose 3 ml IH .STK-MED ONE Lab/Rad Data: Laboratory Results 02/24/19 Range/Units 22:20 Influenza Type A Ag NEGATIVE (NEGATIVE) Influenza Type B Ag NEGATIVE (NEGATIVE) RSV (PCR) POSITIVE (Negative) Group A Strep Antibody NEGATIVE (NEGATIVE) - Progress Progress: improved Air Movement: good Progress Note: 02/25/19 09:11 Pt is here with cough and sore throat. Pt was positive for RSV. Preliminary read on CXR was read as reactive airway changes but later the Radiologist read it as a pneumonia. Dr. Lombardi took care of notifying the pt and additional treatment. Antibiotics given: No - Departure Departure Disposition: Home Clinical Impression: RSV (acute bronchiolitis due to respiratory syncytial virus), Sore throat Condition: Stable Critical Care Time: No Referrals: SERJIO GRAY [Primary Care Provider] - Instructions: Cough, Adult (DC), Respiratory Syncytial Virus, Adult (DC) Additional Instructions: You will need to take the Tesselon perles for cough and Albuterol for cough and bronchospasm as prescribed. You may take Tylenol or Ibuprofen for your aches and fever. You may benefit from a humidifier in your bedroom and Robitussin DM, Airorne, and Sucrets for the pain in your throat. Drinking extra water will help thin your mucus and help it not to gag you as much. Follow up with your primary care doctor in the next 5-7 days if you are not improving or are worse at any time. Return to the ER with emergent problems. You will be contagious to others for the next few days while you are coughing and febrile. Prescriptions: Benzonatate [Tessalon Perle] 100 mg PO Q8H PRN PRN 7 Days #21 capsule PRN Reason: Cough Albuterol Sulfate [Proair Hfa] 8.5 gm IH Q4-6HPRN PRN 10 Days #1 [email or web address] PRN Reason: Cough
[2019-02-24 23:25] LABS: INFLUENZA A NEGATIVE (NEGATIVE); INFLUENZA B NEGATIVE (NEGATIVE); RESPIRATORY SYNCTIAL VIRUS POSITIVE (Negative)
[2019-02-25 01:31] VITALS: BP 124/80; PULSE 87; O2SAT 97
--- NOTE | 2019-02-25 08:57 | XRAY ---
Indication: Cough. Comparison: August 16, 2013. PA/lateral chest demonstrates new lingula infiltrate. Remaining heart, lungs, and bony thorax normal. Comment: Lingula infiltrate not reported on preliminary interpretation by the ER clinician. Telephone report given to Dr. Lombardi in the ER at 0852 hours on February 25, 2019.
== END 2019-02-25 01:31 | disposition home or self-care (01) ==
LOC: ED 20:47
DX: J21.0 Acute bronchiolitis due to respiratory syncytial virus (principal)
CPT/HCPCS: 71046; 87631; 87651; 94150; 94640; 99284; A9270-GY

== ENCOUNTER 2020-12-16 21:30 | Emergency (ER) | payer OTHER ==
[2020-12-16] MEDS ORDERED: TYLENOL 325 MG PO ONE (21:55)
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
[2020-12-16] MEDS ORDERED: TYLENOL 325 MG ONE (22:34)
[2020-12-16 23:36] VITALS: BP 130/74; PULSE 75; O2SAT 99
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
== END 2020-12-16 23:40 | disposition home or self-care (01) ==
LOC: ED 21:30
DX: S06.0X0A Concussion without loss of consciousness, initial encounter (principal); V40.1XXA Car passenger injured in collision with pedestrian or animal in nontraffic accident, initial encounter; Y93.89 Activity, other specified; Y92.89 Other specified places as the place of occurrence of the external cause
CPT/HCPCS: 70450; 84703; 99284; A9270-GY

== ENCOUNTER 2021-01-12 18:54 | Emergency (ER) | payer OTHER ==
[2012-11-22 21:31] VITALS: BP 110/68
--- NOTE | 2021-01-12 19:03 | ERPHSYRPT ---
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 - Vaccination Dates Date of 2cond Vaccination (if applicable): Still need - Past Medical History Pertinent Past Medical History: Yes Neurological History: No Pertinent History ENT History: Other Cardiac History: No Pertinent History Respiratory History: Asthma Endocrine Medical History: No Pertinent History Musculoskeletal History: No Pertinent History GI Medical History: No Pertinent History History: No Pertinent History Psycho-Social History: Anxiety, Bipolar, Depression Female Reproductive Disorders: No Pertinent History Other Medical History: PTSD - Past Surgical History Past Surgical History: Yes Neuro Surgical History: No Pertinent History Cardiac: No Pertinent History Respiratory: No Pertinent History Gastrointestinal: Cholecystectomy Genitourinary: No Pertinent History Musculoskeletal: No Pertinent History Female Surgical History: No Pertinent History Other Surgical History: tonsils et adenoids. NOSE SURGERY - Social History Smoking Status: Current every day smoker How long have you smoked: 9 years Exposure to second hand smoke: Yes Drug Use: none Patient Lives Alone: No Significant Family History: no pertinent family hx - Departure Referrals: SERJIO GRAY [Primary Care Provider] - Follow up/PCP as directed
== END 2021-01-12 19:04 | disposition left against medical advice (07) ==
LOC: ED 18:54
DX: Z53.21 Procedure and treatment not carried out due to patient leaving prior to being seen by health care provider (principal)
CPT/HCPCS: 99281; G0463

== ENCOUNTER 2021-03-17 09:02 | Emergency (ER) | payer OTHER ==
--- NOTE | 2021-03-17 10:13 | XRAY ---
Indication: Pain following fall 2 days ago. Comparison: None 3 view left elbow demonstrates normal bones, articulation, and soft tissues.
--- NOTE | 2021-03-17 10:13 | XRAY ---
Indication: Pain following fall 2 days ago. Comparison: None 2 view left humerus demonstrates normal bones, articulation, and soft tissues.
--- NOTE | 2021-03-17 10:13 | XRAY ---
Indication: Pain following fall 2 days ago. Comparison: None 3 view left shoulder demonstrates normal bones, articulation, and soft tissues.
--- NOTE | 2021-03-17 10:15 | XRAY ---
Indication: Pain following fall 2 days ago. Comparison: February 24, 2019. Portable chest demonstrates normal heart, lungs, and bony thorax.
--- NOTE | 2021-03-17 10:18 | XRAY ---
Indication: Pain following fall 2 days ago. Comparison: None 2 view left clavicle demonstrates normal bones, articulation, and soft tissues.
[2021-03-17] MEDS ORDERED: TORAdol 30 mg Injection IM ONE (10:23)
--- NOTE | 2021-03-17 10:36 | ERPHSYRPT ---
- History of Present Illness Time Seen by Provider: 03/17/21 09:03 Source: patient Exam Limitations: no limitations Patient Subjective Stated Complaint: PT states "Three days ago I slipped on the ice and hit my left shoulder, yesterday I bent down to pick something up and my left elbow popped and now I cannot move it much. I hurt from my shoulder down to my elbow." Triage Nursing Assessment: Pt presented alert and oriented X 3, skin pwd. Pt amb ulates with an upright steady gait, able to speak in clear full sentences pt in no apparent respiratory distress. pt left arm has no bruising or swelling noted, tenderness to touch noted. Physician History: 26 years old female presented to the ER with chief complaint of left shoulder and elbow pain. Patient reports she slipped and fell 3 days ago, landed on left shoulder and since then having mild to moderate pain of the left shoulder and yesterday she put weight on left hand/elbow and heard a popping sound and since then having increasing pain in the left elbow and shoulder/clavicle area. No numbness tingling or weakness. Pain is aggravated with movements and lifting and better with being still. Denies any chest pain palpitations or shortness of breath. Did not hit her head, no loss of consciousness. Occurred: days ago (3) Reason for Fall: slipped, fell from standing pos Injuries/Pain Location: upper extremity Loss of Consciousness: no loss of consciousness Quality: sharpness Severity of Pain-Max: moderate Severity of Pain-Current: moderate Modifying Factors: Improves With: rest. Worsens With: movement Associated Symptoms (Fall): extremity injury Allergies/Adverse Reactions: cefaclor [From Ceclor] Allergy (Mild, Verified 12/16/20 21:38) erythromycin base [Erythromycin Base] Allergy (Mild, Verified 12/16/20 21:38) escitalopram [From Lexapro] Allergy (Verified 12/16/20 21:38) Hx Tetanus, Diphtheria Vaccination/Date Given: Yes Hx Influenza Vaccination/Date Given: Yes Hx Pneumococcal Vaccination/Date Given: No Immunizations Up to Date: Yes Travel Risk - International Travel Have you traveled outside of the country in past 3 weeks: No - Coronavirus Screening Are you exhibiting any of the following symptoms?: No Close contact with a COVID-19 positive Pt in past 14-21 Days: No - Vaccine Status Have you recieved a Covid-19 vaccination: No Commercial 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 - Vaccination Dates Date of 2cond Vaccination (if applicable): Still need - Review of Systems Constitutional: No Symptoms Eyes: No Symptoms Ears, Nose, & Throat: No Symptoms Respiratory: No Symptoms Cardiac: No Symptoms Abdominal/Gastrointestinal: No Symptoms Genitourinary Symptoms: No Symptoms Musculoskeletal: Injury, Joint Pain Skin: No Symptoms Neurological: No Symptoms Psychological: No Symptoms Endocrine: No Symptoms Hematologic/Lymphatic: No Symptoms Immunological/Allergic: No Symptoms - Past Medical History Pertinent Past Medical History: Yes Neurological History: No Pertinent History ENT History: Other Cardiac History: No Pertinent History Respiratory History: Asthma Endocrine Medical History: No Pertinent History Musculoskeletal History: No Pertinent History GI Medical History: No Pertinent History History: No Pertinent History Psycho-Social History: Anxiety, Bipolar, Depression Female Reproductive Disorders: No Pertinent History Other Medical History: PTSD - Past Surgical History Past Surgical History: Yes Neuro Surgical History: No Pertinent History Cardiac: No Pertinent History Respiratory: No Pertinent History Gastrointestinal: Cholecystectomy Genitourinary: No Pertinent History Musculoskeletal: No Pertinent History Female Surgical History: No Pertinent History Other Surgical History: tonsils et adenoids. NOSE SURGERY - Social History Smoking Status: Current every day smoker How long have you smoked: years Exposure to second hand smoke: Yes Drug Use: none Patient Lives Alone: No Significant Family History: no pertinent family hx - Female History Hx Last Menstrual Period: 03/01/2020 Hx Now: No - Nursing Vital Signs Nursing Vital Signs: Initial Vital Signs Temperature 97.8 F 03/17/21 09:08 Pulse Rate 80 03/17/21 09:08 Respiratory Rate 18 03/17/21 09:08 Blood Pressure 130/60 03/17/21 09:08 O2 Sat by Pulse Oximetry 99 03/17/21 09:08 Pain Scale Pain Intensity 8 - Terril Coma Score Best Eye Response (Terril): (4) open spontaneously Best Verbal Response (Terril): (5) oriented Best Motor Response (Terril): (6) obeys commands Kevin Total: 15 - Physical Exam General Appearance: no apparent distress, alert Head Injury: no evidence of injury Eye Exam: PERRL/EOMI, eyes nml inspection ENT Exam: airway nml, No evidence of ENT injury, No dental injury Neck Exam: supple, trachea midline, full range of motion, normal alignment, normal inspection Respiratory/Chest Exam: normal breath sounds, respiratory distress, No chest tenderness Cardiovascular Exam: normal heart sounds, regular rate/rhythm Gastrointestinal Exam: soft Back Exam: normal inspection, normal range of motion, No CVA tenderness, No vertebral tenderness Extremity Exam: normal inspection, normal range of motion (Pain on movement but intact range of motion in left shoulder/elbow), bony point tenderness (Shoulder left), No pain with movement, No sensory deficit, No weight bearing Neurologic Exam: alert, oriented x 3, cooperative, 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 II-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 nml as tested Skin Exam: normal color SpO2 Interpretation: normal SpO2: 99 O2 Delivery: Room Air Ordered Tests: Active Orders 24 hr Category Date Time Status CHEST 1 VIEW (PORTABLE) Stat Exams 03/17/21 09:27 Completed CLAVICLE Stat Exams 03/17/21 Completed ELBOW (MINIMUM 3 VIEWS) Stat Exams 03/17/21 Completed HUMERUS Stat Exams 03/17/21 Completed SHOULDER Stat Exams 03/17/21 09:27 Completed Medication Summary Discontinued Medications Generic Name Dose Route Start Last Admin Trade Name Freq PRN Reason Stop Dose Admin Ketorolac Tromethamine 30 mg 03/17/21 10:23 Ketorolac Tromethamine 30 Mg/Ml Inj IM 03/17/21 10:24 STAT ONE - Progress Progress: pain not gone completely, re-examined Progress Note: 03/17/21 10:33 She is given Toradol for symptomatic relief. X-rays negative for any acute fracture dislocation. I believe patient has a contusion of the left shoulder and possibly sprain of left elbow. Placed in a sling, NSAIDs and outpatient Ortho clinic follow-up. Counseled pt/family regarding: diagnosis, need for follow-up, rad results - Departure Departure Disposition: Home Clinical Impression: Contusion of left shoulder, Fall, Sprain of elbow, left Condition: Stable Critical Care Time: No Referrals: SERJIO GRAY [Primary Care Provider] - Follow Up with PCP/3 days ORTHO - MARTI CRUZ NP [NON-STAFF PHY W/O PRIVILEGES] - Follow up/PCP as directed (1-2 days for reevaluation) Instructions: Elbow Sprain (DC) Additional Instructions: Take Tylenol/ibuprofen as needed for pain. Follow-up with primary care/Ortho clinic for reevaluation. Avoid exertional activities. Return to ER for worsening pain, difficulty movements or swelling of joint. Prescriptions: Ibuprofen 600 mg PO Q6HPRN PRN 10 Days #20 tablet PRN Reason: Pain
[2021-03-17] MEDS ORDERED: TORAdol 30 mg Injection ONE (10:41)
[2021-03-17 10:42] VITALS: BP 128/58; PULSE 74; O2SAT 98
== END 2021-03-17 11:00 | disposition home or self-care (01) ==
LOC: ED 09:02
DX: S40.012A Contusion of left shoulder, initial encounter (principal); S53.402A Unspecified sprain of left elbow, initial encounter; W00.0XXA Fall on same level due to ice and snow, initial encounter; Z72.0 Tobacco use
CPT/HCPCS: 71045; 73000; 73030; 73060; 73080; 96372; 99284; J1885

== ENCOUNTER 2022-01-24 20:03 | Emergency (ER) | payer OTHER ==
[2022-01-24 20:37] VITALS: BP 101/69; PULSE 77; O2SAT 97
== END 2022-01-24 21:35 | disposition left against medical advice (07) ==
LOC: ED 20:03
DX: R20.2 Paresthesia of skin (principal)
CPT/HCPCS: 99281; G0463